=== PATIENT | female | born 1995 | race Caucasian/White ===

== ENCOUNTER 2023-06-04 19:39 | Inpatient (IN) | payer OTHER, SELFPAY ==
[2023-06-04 19:50] VITALS: BMI 34.8
[2023-06-04 20:25] VITALS: BP 128/87
[2023-06-04 20:31] LABS: % Basophils 0.2 % (0-2); % Eosinophils 0.8 % (0-6); % Immature Granulocytes 0.9 % (0-0.5); % Lymphocytes 13.7 % (20.5-51.1); % Monocytes 5.7 % (1.7-9.3); % Neutrophils 78.7 % (42.2-75.2); Absolute Eosinophils 0.1 10^3/uL (0-0.7); Absolute Immature Granulocytes 0.1 10^3/uL (0-0.05); Absolute Lymphocytes 1.2 10^3/uL (1.2-3.4); Absolute Monocytes 0.5 10^3/uL (0.1-0.6); Hematocrit 31.3 % (37.0-47.0); Hemoglobin 11.1 g/dL (12.0-16.0); Mean Corp Hgb Conc. 35.5 g/dL (33.0-37.0); Mean Corpuscular Hgb 32.9 pg (27.0-31.0); Mean Corpuscular Volume 92.9 fL (81.0-99.0); Mean Platelet Volume 11.9 fL (7.4-10.4); Nucleated Red Blood Cells % 0 %; Platelet Count 138 10^3/uL (130-400); Red Blood Cell Count 3.37 10^6/uL (4.20-5.40); Red Cell Dist. Width 12.8 % (11.5-14.5); White Blood Cell Count 8.9 10^3/uL (4.8-10.8)
[2023-06-04] MEDS: CYTOTEC 25 MICROGRAM VAG (20:41)
[2023-06-04 23:04] LABS: Amphetamines Negative (Negative); Barbiturates Negative (Negative); Benzodiazepines Negative (Negative); Buprenorphine Negative (Negative); Cocaine Negative (Negative); Marijuana Negative (Negative); Methadone Negative (Negative); Methamphetamines Negative (Negative); Opiates Negative (Negative); Phencyclidine Negative (Negative); Tricyclic Antidepressants Negative (Negative)
[2023-06-05] MEDS: CYTOTEC 50 MICROGRAM PO (01:04)
[2023-06-05] MEDS: LR 1000 IV ×2 (01:27→04:25)
[2023-06-05] MEDS: MORPHINE SULFATE 2 MG IV (04:25)
[2023-06-05] MEDS: CYTOTEC PO ×4 (05:55→18:36)
[2023-06-05] MEDS: SUBLIMAZE 100 MCG EPIDURAL (09:02)
[2023-06-05] MEDS: FENTANYL/BUPIVACAINE 100 EPIDURAL (09:03)
[2023-06-05] MEDS: BRETHINE 250 MCG SC (10:19)
[2023-06-05] MEDS: TUMS 2 TABLET PO (12:05)
[2023-06-05] MEDS: PITOCIN 30 UNITS/NSS 500 ML IV ×2 (15:29→18:00)
[2023-06-05] MEDS: BICITRA 30 ML PO (16:46)
[2023-06-05] MEDS: ANCEF 10 IV (17:00)
[2023-06-05] MEDS: TYLENOL 1000 MG PO (17:03)
[2023-06-05] MEDS: ZITHROMAX INFUSION 250 IV (17:06)
[2023-06-05 17:24] LABS: Cord ABG Comment CORD BLOOD
[2023-06-05 17:25] LABS: B.E. Cord ABG -8.3 mMOL/L; HCO3 Cord ABG 22.5 mmol/L; O2 Saturation % Cord ABG 21.4 %; PCO2 Cord ABG 66 mmHg; PO2 Cord ABG 19 mmHg; pH Cord ABG 7.14
--- NOTE | 2023-06-05 17:55 | W.IMMPOSTOP ---
Addendum entered and electronically signed by Shiloh Bermeo DO 06/05/23 23:54:
Error to below Assisting surgeon. Letty Helton assisted (not China Dobbs).
DO Shreyas
Original Note:
Surgical Immed Post Op Note
-
Primary Surgeon: Shiloh Bermeo
Assisting Surgeon: Wilfrid Chahal, China Dobbs
Pre-op Diagnosis: IUP at 40+3wks, intolerance of labor, meconium stained fluid
Post-op Diagnosis: Same as above
Procedure Performed: PLTCS
Anesthesia Type: epidural
Specimen / Cultures: cord gases; placenta to pathology
Estimated Blood Loss: 545ml
Complications: none
Operative Findings: male in the ROP position, no nuchal cord, moderate meconium, Apgars 8/9, weight pending; placenta appeared small for EGA; normal-appearing uterus, tubes and ovaries
[2023-06-05] MEDS: TORADOL 15 MG IV (23:31)
[2023-06-06 05:43] LABS: Hematocrit 27.6 % (37.0-47.0); Hemoglobin 9.9 g/dL (12.0-16.0); Mean Corp Hgb Conc. 35.9 g/dL (33.0-37.0); Mean Corpuscular Hgb 33.1 pg (27.0-31.0); Mean Corpuscular Volume 92.3 fL (81.0-99.0); Mean Platelet Volume 11.9 fL (7.4-10.4); Platelet Count 138 10^3/uL (130-400); Red Blood Cell Count 2.99 10^6/uL (4.20-5.40); Red Cell Dist. Width 12.8 % (11.5-14.5); White Blood Cell Count 14.4 10^3/uL (4.8-10.8)
[2023-06-06] MEDS: TORADOL 15 MG IV ×3 (05:56→18:04)
[2023-06-06] MEDS: FLUSH (NSS) 3 FLUSH IV (05:57)
--- NOTE | 2023-06-06 07:56 | W.PN.ANS.POP ---
Anesthesia Post Operative
- Anesthesia Post Op Note
Vital Signs Stable-See Nursing Note: Yes
Airway Patent: Yes
Adequate Pain Control: Yes
Change in Mental Status: No
Current Postoperative Nausea & Vomiting: No
Anesthesia Complications: No
General Anesthetic Recall: No
Unplanned Admission: No
Post Op Hydration Adequate: Yes
[2023-06-06] MEDS: SENOKOT-S 1 TABLET PO (11:01)
[2023-06-06] MEDS: PRENATAL PLUS 1 TABLET PO (11:01)
[2023-06-06] MEDS: TYLENOL 650 MG PO (21:20)
[2023-06-07] MEDS: MOTRIN 600 MG PO ×3 (00:23→15:07)
[2023-06-07] MEDS: TYLENOL 650 MG PO ×2 (09:06→15:07)
[2023-06-07] MEDS: SENOKOT-S 1 TABLET PO (09:06)
[2023-06-07] MEDS: FEOSOL 325 MG PO (09:06)
[2023-06-07] MEDS: PRENATAL PLUS 1 TABLET PO (09:07)
--- NOTE | 2023-06-07 14:32 | W.DS.TRANS ---
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
-
Discharge Instructions:
Instructions:
Stand-Alone Forms:
Changes to Home Medications: No
Discharge Medications:
DC Medications w/original date entered in [facility]
prenat.vits,amy,smf-ouzb-ggakx 1 tab PO DAILY Supplement 06/04/23
valacyclovir 500 mg tablet (Valtrex) 500 mg PO DAILY Infection 06/04/23
Home Medication Changes
Pending Results: Yes
Additional Pending Results:
placenta pathology
Total time spent discharging patient (in min): 25
[2023-06-08 14:27] LABS: Syphilis/T. pallidum Ab Reflex Negative (Negative)
== END 2023-06-07 16:39 | disposition home or self-care (01) | DRG 787 ==
LOC: LDRP 19:39
PROVIDERS: Obstetrics & Gynecology; ADMITTING PHYSICIAN Obstetrics & Gynecology; FAMILY PHYSICIAN Internal Medicine
PROC: 10D00Z1 Extraction of Products of Conception, Low, Open Approach (ICD-10-PCS; 2023-06-05)
DX: O76 Abnormality in fetal heart rate and rhythm complicating labor and delivery (principal); O98.32 Other infections with a predominantly sexual mode of transmission complicating childbirth; O98.42 Viral hepatitis complicating childbirth; O99.12 Other diseases of the blood and blood-forming organs and certain disorders involving the immune mechanism complicating childbirth; O77.0 Labor and delivery complicated by meconium in amniotic fluid; O48.0 Post-term pregnancy; O99.02 Anemia complicating childbirth; O32.8XX0 Maternal care for other malpresentation of fetus, not applicable or unspecified; D69.59 Other secondary thrombocytopenia; Z37.0 Single live birth; Z3A.40 40 weeks gestation of pregnancy
CPT/HCPCS: 88307; 36415; 80306; 82803; 85025; 85027; 86780; 86850; 86900; 86901